=== PATIENT | female | born 1955 | race Two or more races ===

== ENCOUNTER 2020-05-28 11:45 | Inpatient (IN) | payer OTHER ==
[~2020-05-28] VITALS: Ht 162.6 cm; Wt 77.1 kg
[2020-05-28] MEDS ORDERED: FORTAMET1000 MG PO (15:01)
[2020-05-28] MEDS ORDERED: LOTENSIN40 MG PO (15:01)
== END 2020-06-05 12:07 | disposition home or self-care (01) | DRG 743 ==
LOC: O/R 06-04 06:09 → SURH 06-04 10:15 → SURG-SUITE 06-04 17:38
PROVIDERS: ADMIT Obstetrics & Gynecology Gynecologic Oncology; ATTEND Obstetrics & Gynecology Gynecologic Oncology
PROC: 0UT24ZZ Resection of Bilateral Ovaries, Percutaneous Endoscopic Approach (ICD-10-PCS; 2020-06-04)
PROC: 0UT74ZZ Resection of Bilateral Fallopian Tubes, Percutaneous Endoscopic Approach (ICD-10-PCS; 2020-06-04)
PROC: 0UT94ZZ Resection of Uterus, Percutaneous Endoscopic Approach (ICD-10-PCS; principal; 2020-06-04 10:15)
DX: N83.292 Other ovarian cyst, left side (principal); N83.291 Other ovarian cyst, right side; D25.1 Intramural leiomyoma of uterus; N80.0 Endometriosis of uterus; N72 Inflammatory disease of cervix uteri

== ENCOUNTER 2024-05-10 10:46 | Outpatient (CLI) | payer OTHER ==
[~2024-05-10 10:46] MED LIST: FORTAMET1000 MG PO; LOTENSIN40 MG PO
== END 2024-05-10 11:04 | disposition home or self-care (01) ==
LOC: MRI 10:46
PROVIDERS: ATTEND Physical Medicine & Rehabilitation
DX: M65.98 Unspecified synovitis and tenosynovitis, other site (principal); G56.02 Carpal tunnel syndrome, left upper limb
CPT/HCPCS: 73221